=== PATIENT | male | born 1950 | race Caucasian/White ===

== ENCOUNTER → 2017-02-03 | Outpatient (CLI) | payer MEDICARE, OTHER ==
[~2017-02-03] MED LIST: PENTASA 250 MG250 MG PO; PENTASA500 MG PO
== END ==
LOC: KOH-I 12:32
DX: R31.9 Hematuria, unspecified (principal)
CPT/HCPCS: 76775

== ENCOUNTER → 2021-12-23 | Day surgery (SDC) | payer MEDICARE ==
[~2021-12-23] MED LIST changes: +APRISO0.375 GM PO; +DAILY VALUE1 EACH PO; +VITAMIN C TABLET PO; +VITAMIN D PO; +ZINC TABLET PO
== END | disposition home or self-care (01) ==
LOC: OR 06:44
DX: K64.0 First degree hemorrhoids (principal); K76.0 Fatty (change of) liver, not elsewhere classified; G47.30 Sleep apnea, unspecified; K21.9 Gastro-esophageal reflux disease without esophagitis; E66.3 Overweight; Z68.25 Body mass index [BMI] 25.0-25.9, adult; Z88.0 Allergy status to penicillin; Z99.89 Dependence on other enabling machines and devices
CPT/HCPCS: J2704; J3010; J7040

== ENCOUNTER → 2022-01-21 | Day surgery (SDC) | payer MEDICARE ==
[~2022-01-21] MED LIST changes: +CARAFATE1 GM PO; +PROTONIX40 MG PO
== END | disposition home or self-care (01) ==
LOC: OR 07:28
DX: K21.00 Gastro-esophageal reflux disease with esophagitis, without bleeding (principal); K22.10 Ulcer of esophagus without bleeding; K51.00 Ulcerative (chronic) pancolitis without complications; G47.30 Sleep apnea, unspecified; K76.0 Fatty (change of) liver, not elsewhere classified; K31.9 Disease of stomach and duodenum, unspecified; R07.89 Other chest pain; Z88.0 Allergy status to penicillin; Z79.899 Other long term (current) drug therapy
CPT/HCPCS: J2704; J7040

== ENCOUNTER → 2022-04-21 | Day surgery (SDC) | payer MEDICARE | END | disposition home or self-care (01) | LOC: OR 07:39 | DX: K21.00 Gastro-esophageal reflux disease with esophagitis, without bleeding (principal); K51.00 Ulcerative (chronic) pancolitis without complications; K44.9 Diaphragmatic hernia without obstruction or gangrene; G47.30 Sleep apnea, unspecified; E66.3 Overweight; Z68.25 Body mass index [BMI] 25.0-25.9, adult; Z88.0 Allergy status to penicillin; Z79.899 Other long term (current) drug therapy | CPT/HCPCS: J7040 ==